=== PATIENT | female | born 1980 | race Caucasian/White ===

== ENCOUNTER 2019-12-11 20:24 | Emergency (ER) | payer MEDICAID, OTHER ==
[~2019-12-11] VITALS: Ht 162.6 cm; Wt 72.6 kg
[2019-12-11 21:50] LABS: BASO % 0.6 % (0.0-1.0); EOS # 0.1 10^3/uL (0.0-0.5); EOS % 0.9 % (0.0-3.0); HEMATOCRIT 38.2 % (36.0-47.0); HEMOGLOBIN 13.7 g/dl (12.0-15.5); LYMPH # 1.7 10^3/uL (1.5-5.0); MEAN CORPUSCULAR HEMOGLOBIN 32.1 pg (27.0-33.0); MEAN CORPUSCULAR HGB CONC 35.9 g/dl (32.0-36.5); MEAN CORPUSCULAR VOLUME 89.5 fl (80.0-96.0); MONO # 0.5 10^3/uL (0.0-0.8); NEUTROPHILS # 4.2 10^3/uL (1.5-8.5); NEUTROPHILS % 65.3 % (36.0-66.0); PLATELET COUNT, AUTOMATED 196 10^3/uL (150-450); RED BLOOD COUNT 4.27 10^6/uL (4.00-5.40); WHITE BLOOD COUNT 6.5 10^3/uL (4.0-10.0)
[2019-12-11] MEDS ORDERED: BASA100I (21:56)
[2019-12-11] MEDS ORDERED: FLUC150T (21:56)
[2019-12-11] MEDS ORDERED: PREG75CA2 (21:56)
[2019-12-11] MEDS ORDERED: VITA50005 (21:56)
[2019-12-11] MEDS ORDERED: CYCL-707 (21:56)
[2019-12-11] MEDS ORDERED: FLUT11IN (21:56)
[2019-12-11] MEDS ORDERED: ADME100I2 (21:56)
[2019-12-11] MEDS ORDERED: EPIN0.3I11 (21:56)
[2019-12-11] MEDS ORDERED: HYDR-4514 (21:56)
[2019-12-11] MEDS ORDERED: ALBU8.5H (21:56)
[2019-12-11] MEDS ORDERED: ATOR1TAB19 (21:56)
[2019-12-11 22:04] LABS: HCG, SERUM QUALITATIVE NEGATIVE (NEGATIVE)
[2019-12-11 22:11] LABS: ALBUMIN 3.7 GM/DL (3.2-5.2); ALT/SGPT 26 U/L (12-78); BILIRUBIN,DIRECT 0.1 MG/DL (0.0-0.2); BILIRUBIN,TOTAL 0.4 MG/DL (0.2-1.0); BLOOD UREA NITROGEN 12 MG/DL (7-18); CALCIUM LEVEL 8.9 MG/DL (8.5-10.1); CARBON DIOXIDE LEVEL 29 MEQ/L (21-32); CHLORIDE LEVEL 105 MEQ/L (98-107); CREATININE FOR GFR 0.73 MG/DL (0.55-1.30); GLOMERULAR FILTRATION RATE > 60.0 (>60); GLUCOSE, FASTING 300 MG/DL (70-100); LIPASE 998 U/L (73-393); POTASSIUM SERUM 3.8 MEQ/L (3.5-5.1); SODIUM LEVEL 137 MEQ/L (136-145); TOTAL PROTEIN 7.4 GM/DL (6.4-8.2)
--- NOTE | 2019-12-11 23:28 | REPVR ---
PROCEDURE INFORMATION: Exam: US Nonobstetric Pelvis; Complete Exam date and time: 12/11/2019 10:27 PM Age: 39 years old Clinical indication: Pelvic pain; Additional info: Rlq abd pain, HX ovarian cysts TECHNIQUE: Imaging protocol: Transabdominal pelvic nonobstetric ultrasound. Complete exam. Real time ultrasound with image documentation. COMPARISON: No relevant prior studies available. FINDINGS: Uterus/cervix: The uterus measures 9.2 x 5.3 x 6.0 cm. Endometrial thickness measures 9 mm. Uterus is anteverted. Small anechoic area in the fundal endometrium measuring 1.2 x 0.5 x 2.0 cm Right adnexa: Right ovary measures 2.2 x 1.9 x 2.3 cm. Normal vascular flow. Left adnexa: Left ovary measures 2.4 x 1.4 x 0.9 cm. Normal vascular flow Intraperitoneal space: None. Bladder: Normal. IMPRESSION: Small anechoic area in the fundal endometrium measuring 1.2 x 0.5 x 2.0 cm. Differential includes early gestation, trapped fluid or endometrial cyst. Follow-up is suggested. Electronically signed by: Almas Milian On 12/11/2019 23:28:30 PM
[2019-12-12] MEDS ORDERED: DICYCLOMINE 10 MG CAP PO ONE
[2019-12-12] MEDS ORDERED: DICY10CA13 PO (00:10)
[2019-12-12 00:16] VITALS: BP 118/70
== END 2019-12-12 00:18 | disposition home or self-care (01) ==
LOC: M ED 20:24
DX: R10.31 Right lower quadrant pain (principal); E11.9 Type 2 diabetes mellitus without complications; J45.909 Unspecified asthma, uncomplicated; M79.7 Fibromyalgia; Z87.42 Personal history of other diseases of the female genital tract; Z79.4 Long term (current) use of insulin; Z79.899 Other long term (current) drug therapy; Z88.0 Allergy status to penicillin; Z88.6 Allergy status to analgesic agent; Z88.8 Allergy status to other drugs, medicaments and biological substances; Z91.040 Latex allergy status; Z91.010 Allergy to peanuts